=== PATIENT | female | born 1990 | race African-American/Black ===

== ENCOUNTER 2018-09-28 07:12 | Emergency (ER) | payer OTHER, MEDICAID ==
[~2018-09-28] VITALS: Ht 157.5 cm; Wt 67.0 kg
[2018-09-28] MEDS ORDERED: IPRATROPIUM/ALBUTEROL 0.5-3(2.5)MG/3ML NEB HHN ONE (08:15)
[2018-09-28] MEDS ORDERED: PREDNISONE 20MG TABLET PO ONE (09:15)
[2018-09-28 09:46] VITALS: BP 128/78
== END 2018-09-28 09:47 | disposition home or self-care (01) ==
LOC: ER 07:12
DX: J45.909 Unspecified asthma, uncomplicated (principal); Z88.0 Allergy status to penicillin
CPT/HCPCS: 71045; 94640; 99283; J7512; J7620

== ENCOUNTER 2019-04-15 16:53 | Emergency (ER) | payer MEDICAID, OTHER ==
[~2019-04-15] VITALS: Ht 157.5 cm; Wt 69.0 kg
[2019-04-15] MEDS ORDERED: IPRATROPIUM BROMIDE (0.02%) 0.5MG/2.5ML NEB HHN STA (17:17)
[2019-04-15] MEDS ORDERED: ALBUTEROL (0.5%) 2.5MG/0.5ML NEB HHN ONE (17:30)
[2019-04-15] MEDS ORDERED: METHYLPREDNISOLONE SOD SUCC 125 MG/2 ML VIAL IM ONE (18:15)
[2019-04-15 18:38] VITALS: BP 133/73
== END 2019-04-15 18:50 | disposition home or self-care (01) ==
LOC: ER 16:53
DX: J45.901 Unspecified asthma with (acute) exacerbation (principal)
CPT/HCPCS: 71045; 94640; 96372; 99283; J2930; J7611; Z7610